=== PATIENT | female | born 1980 | race Caucasian/White ===

== ENCOUNTER 2016-12-02 05:32 | Emergency (ER) | payer BC ==
--- NOTE | ~2016-12-02 | ER ---
PATIENT'S NAME: LEEANN COX [facility] AGE: 36 Y [address] ROOM: [place] [address] LOCATION: [facility] ADMIT DATE: 12/02/2016 ER/Outpatient Report DISCHARGE DATE: 12/02/2016 FAMILY PHYSICIAN: Julius Mckeon MD ATTENDING PHYSICIAN: Krystal Cee CHIEF COMPLAINT: Severe abdominal pain. HISTORY OF PRESENT ILLNESS: The patient is a 36-year-old female, who has a rather confusing history. She was admitted approximately 8 days ago with severe right upper quadrant pain. She had a normal white count at that time and some minimal elevation of her liver function tests. She was admitted by her family physicians, and Surgery and Gastroenterology consults were obtained. She ended up having CT scans as well as an MRCP that showed some minimal edema along the edge of the gallbladder. No stones or other abnormalities. Certainly, no duct dilatation. HIDA scans were unremarkable. Due to the persistence of her pain, which was apparently quite severe, she ended up having a laparoscopic cholecystectomy done on Sunday. Some edema was noted around the gallbladder on the operative note. Otherwise, the procedure was quite uneventful. The patient apparently did feel somewhat better and went home the evening after the operation. She had been doing relatively well until 5 o'clock this morning when she was awakened by an abrupt onset of severe right-sided pain. The pain is constant in nature. It is an extremely intense and a burning-type pain. It seems to have radiated up into her right shoulder area. She has some nausea when the pain is most intense, but otherwise has had no nausea issues. She had some episodes of non-bloody diarrhea last night, but no diarrhea overnight or this morning. No fevers or chills. No dysuria or urinary frequency. The pain is somewhat similar to what she had before, but more intense. In the emergency room, the patient has required considerable amount of Dilaudid to control her pain. This only seems to take the edge off and only briefly. Her CT scan was reviewed by myself, and Dr. Tate who came in to see the patient. Her lab work shows a minimally elevated AST and ALT and a new elevated white count at 17,000. Nothing else really stands out. Her amylase and lipase were normal. PAST MEDICAL HISTORY: Really unchanged and generally just positive for the AMS. PAST SURGICAL HISTORY: Include a right Port-A-Cath as well as a and hernia repair. PHYSICAL EXAMINATION: VITAL SIGNS: She is afebrile. Her vital signs look pretty good other than some mild hypertension. GENERAL: The patient is a healthy, well-nourished young female. She does PATIENT'S NAME: LEEANN COX [facility] AGE: 36 Y [address] ROOM: [place] [address] LOCATION: [facility] ADMIT DATE: 12/02/2016 ER/Outpatient Report DISCHARGE DATE: 12/02/2016 FAMILY PHYSICIAN: Julius Mckeon MD ATTENDING PHYSICIAN: Krystal Cee appear to be in significant distress. Breathing is nonlabored. LUNGS: Clear to auscultation bilaterally. HEART: Regular. ABDOMEN: Soft. She does have bowel sounds. She is not visibly distended. Her trocar incisions are intact and healing well. She is diffusely tender, but more on the right side. It is a fairly severe pain, but I would not really describe any rebound or guarding symptoms. EXTREMITIES: No peripheral edema. No cyanosis. No obvious deformities. ASSESSMENT: A 36-year-old female with excruciating uncontrolled right-sided abdominal pain. The etiology of this is unclear. Certainly, we have to be concerned about postsurgical complication, but I am more worried that this is continuation of the previous abdominal pain, and we have not really figured out her etiology. PLAN: We were having considerable time getting her pain under control here, and I really do not have any other suggestions as to what to do to evaluate or treat her further. Dr. Tate, as I mentioned came into evaluate the patient, saw her also. I discussed this with Dr. Martinez who is automation test engineer for the family practice group. She has also previously been seen by Gastroenterology, though she did not get seen by them today. I am concerned enough about her pain and the lack of a diagnosis that we decided to transfer her to the [facility]. The hospitalist automation test engineer has accepted her in transfer. MD CYNDI CÁRDENAS/valente /[id number] d: 12/02/16 1433 t: 12/04/16 1241, OUTPATIENT REPORT
--- NOTE | ~2016-12-02 | ER ---
PATIENT'S NAME: LEEANN COX [facility] AGE: 36 Y [address] ROOM: [place], [place] [address] LOCATION: [facility] ADMIT DATE: 12/02/2016 ER/Outpatient Report DISCHARGE DATE: 12/02/2016 FAMILY PHYSICIAN: Julius Mckeon MD ATTENDING PHYSICIAN: Krystal Cee CHIEF COMPLAINT: Abdominal pain. HISTORY OF PRESENT ILLNESS: The patient states that she woke up at 5:00 a.m. with severe abdominal pain in the right upper quadrant that radiated to her right shoulder. She has a history of similar and in fact, on Sunday actually had a cholecystectomy by Dr. Tate. She felt like she had been improving and yesterday was doing quite well. Per report, the surgery was uneventful and her postop course was unremarkable. She has had some nausea with this, but the intensity is worse than she has had before per report. She also has MS, but denies any other issues. She did have some more liquid bowel movements recently as last night, which is slightly different for her, but no other acute issues. PAST MEDICAL HISTORY: Documented on the record and reviewed by me. SOCIAL HISTORY: Documented on the record and reviewed by me. MEDICATIONS: Documented on the record and reviewed by me. ALLERGIES: DOCUMENTED ON THE RECORD AND REVIEWED BY ME. REVIEW OF SYSTEMS: All systems reviewed, negative except as noted in the HPI. PHYSICAL EXAMINATION: VITAL SIGNS: Blood pressure 187/99, pulse 83, respiratory rate 20, temp 96.0, SpO2 is 93% on room air. Pain is severe. GENERAL: Age-appropriate female, in obvious severe pain, lying on the exam table writhing and uncomfortable. No respiratory distress. NEUROLOGIC: The patient is awake and alert. GCS 15. No focal deficits or asymmetry on exam. HEENT: Normocephalic and atraumatic. Eyes are PERRL. Oropharynx is clear. NECK: Supple. Trachea is midline. CHEST: Heart has regular rate and rhythm with no murmurs. LUNGS: Clear to auscultation bilateral with no rhonchi, wheezes, or rales. ABDOMEN: Diffusely tender with some guarding and rebound. No masses PATIENT'S NAME: LEEANN COX [facility] AGE: 36 Y [address] ROOM: [place], [place] [address] LOCATION: ED ADMIT DATE: 12/02/2016 ER/Outpatient Report DISCHARGE DATE: 12/02/2016 FAMILY PHYSICIAN: uJlius Mckeon MD ATTENDING PHYSICIAN: Krystal Cee. BACK: Nontender to palpation throughout. No CVA tenderness. EXTREMITIES: Warm and well perfused with no deformities. SKIN: Intact with no obvious rashes. LABS AND X-RAYS: CT scan of the abdomen reveals scant fluid in the gallbladder fossa with no obvious other abnormalities. Labs are notable for WBCs of 17.8, up from 7.3 on the ; hemoglobin is 11.4; and platelets of 393. INR 1.0. Lactate is elevated at 3.4. Free T4 is 1.0, TSH is 2.72. Amylase 33, lipase 103, CK-MB is 1.4. Troponin is undetectable. CRP is 0.64. HCG is undetectable. Sodium 142, potassium 3.4, chloride 107, CO2 of 19, BUN 7, creatinine 0.8. LFTs are notable for an AST of 61, an ALT of 86, GFR is greater than 60, total bilirubin of 0.4. Procalcitonin is undetectable. Repeat troponin is undetectable. Urinalysis is not consistent with infection. EKGs: Sinus rhythm, ventricular rate of 70 with otherwise normal intervals and axis. No signs of acute ischemia or dysrhythmia. There is inversion of the T-wave of lead V3, stable on repeat EKG. No other acute findings. Chest x-ray without abnormality per my read. IMPRESSION: Abdominal pain, not otherwise specified. EMERGENCY DEPARTMENT COURSE: The patient was evaluated as above. Imaging was obtained. With exam and leukocytosis, Dr. Tavera, on-call surgery, was contacted to evaluate the patient. He evaluated the patient at bedside with Dr. Tate. They have elected to transfer the patient as they were unsure of the current cause of pain. They think it is unlikely that she has perforation or even bile leak. Dr. Tavera arranged transfer of the patient to [facility] for further evaluation. Her pain was extremely difficult to control. She received several milligrams of Dilaudid, at least 7 mg total, in addition to Zofran and a dose of ketamine at 0.2 mg/kg for pain. This did not seem to provide any significant long-lasting benefits. Ultimately, after the evaluation by the surgical team, the patient PATIENT'S NAME: LEEANN COX [facility] AGE: 36 Y [address] ROOM: [place] [address] LOCATION: [facility] ADMIT DATE: 12/02/2016 ER/Outpatient Report DISCHARGE DATE: 12/02/2016 FAMILY PHYSICIAN: Julius Mckeon MD ATTENDING PHYSICIAN: Krystal Cee was transferred by ambulance to [facility]. Her pain was slightly better overall. She was requiring a little bit of oxygen at that time as her O2 sats would begin to dip whenever she would start to doze off. This was the best comfort level we were able to achieve in the ER. Vital signs on discharge were 142/71, pulse of 78, respiratory rate 16, temperature was 97.6, SpO2 of 98% on 2 L nasal cannula. The patient did receive an IV bolus for an elevated lactic acid of 3.4. She subsequently otherwise remained stable and was transferred without further issue. Please see Dr. Tavera's dictation for official details of his opinion and transfer. MD LARY LAWRENCE/valente /[id number] d: 12/02/16 1754 t: 12/08/16 0615, OUTPATIENT REPORT
[~2016-12-02 05:32] MED LIST: ADVIL200 MG PO; AMBIEN10 MG PO; COLACE100 MG PO; LUNESTA3 MG PO; PERCOCET 5-3251 EACH PO; TYLENOL325 MG PO; TYSABRI300 MG/15 IV; WELLBUTRIN SR150 MG PO
[2016-12-02 06:23] LABS: BASOPHIL # 0.1 K/uL (0.0-0.2); BASOPHIL % 0.4 %; EOSINOPHIL # 0.2 K/uL (0.0-0.5); EOSINOPHIL % 1.1 %; HEMATOCRIT 36.9 % (33.0-46.0); HEMOGLOBIN 11.4 g/dL (11.0-15.0); IMMATURE GRANULOCYTE # 0.2 K/uL (0.0-0.3); IMMATURE GRANULOCYTE % 0.8 %; LYMPHOCYTE # 3.4 K/uL (0.8-4.0); LYMPHOCYTE % 19.3 %; MCH 26.2 pg (27.0-34.0); MCHC 30.9 gm/dL (32.0-36.5); MCV 84.8 fl (83.0-98.0); MONOCYTE # 1.2 K/uL (0.0-1.0); MONOCYTE % 6.5 %; MPV 8.6 fl (9.4-12.4); NEUTROPHIL # (ANC) 12.8 K/uL (1.8-7.8); NEUTROPHIL % 71.9 %; NRBC % 0.2 /100WBC (0-0.00); PLATELET COUNT 393 K/uL (150-450); RBC 4.35 M/uL (3.50-5.50); RDW-CV 14.7 % (11.9-14.6); WBC 17.8 K/uL (4.0-11.0)
[2016-12-02 06:32] LABS: PTT 23 SECONDS (25-32)
[2016-12-02 06:46] LABS: ALBUMIN 3.5 gm/dL (3.5-5.0); ALK PHOS 80 IU/L (33-138); ALT 86 IU/L (12-78); ANION GAP 19.4 (10.0-19.0); AST 61 IU/L (10-40); BLOOD UREA NITROGEN 7 mg/dL (6-24); CALCIUM 8.6 mg/dL (8.5-10.5); CHLORIDE 107 mMol/L (96-110); CO2 19 mMol/L (22-32); CREATININE 0.8 mg/dL (0.5-1.1); ESTIMATED GFR (MDRD EQUATION) > 60; POTASSIUM 3.4 mMol/L (3.7-5.1); SODIUM 142 mMol/L (135-145); TOTAL BILIRUBIN 0.4 mg/dL (0.0-1.5); TOTAL PROTEIN 7.2 g/dL (6.0-8.4)
[2016-12-02 10:21] LABS: BILIRUBIN URINE NEGATIVE (NEGATIVE); BLOOD URINE NEGATIVE /UL (NEGATIVE); COLOR URINE YELLOW (YELLOW); GLUCOSE URINE NEGATIVE (NEGATIVE); KETONE URINE 5 mg/dL (NEGATIVE); LEUKOCYTES URINE NEGATIVE /UL (NEGATIVE); NITRITE URINE NEGATIVE (NEGATIVE); PROTEIN URINE NEGATIVE (NEGATIVE); TURBIDITY URINE CLEAR (CLEAR); UROBILINOGEN URINE NORMAL (NORMAL)
[2016-12-21] MEDS ORDERED: PRADAXA150 MG PO (22:57)
[2016-12-22] MEDS ORDERED: TIZANIDINE HCL2 MG PO (10:19)
[2016-12-22] MEDS ORDERED: KLONOPIN0.5 MG PO (10:20)
== END 2016-12-02 11:34 | disposition disaster alternative care site (69) ==
LOC: GMED 05:32
PROVIDERS: Emergency Medicine
PROC: 0T9B70Z Drainage of Bladder with Drainage Device, Via Natural or Artificial Opening (ICD-10-PCS; principal; 2016-12-02)
DX: R10.11 Right upper quadrant pain (principal); Z98.890 Other specified postprocedural states
CPT/HCPCS: J1170; J2405; J3010; J7030; Q9967

== ENCOUNTER 2017-02-13 15:41 | Emergency (ER) | payer BC, MEDICARE ==
--- NOTE | ~2017-02-13 | ER ---
PATIENT'S NAME: LEEANN COX [facility] AGE: 36 Y [address] ROOM: [place] [address] LOCATION: [facility] ADMIT DATE: 02/13/2017 ER/Outpatient Report DISCHARGE DATE: 02/13/2017 FAMILY PHYSICIAN: Julius Mckeon MD ATTENDING PHYSICIAN: Sebastian Aviles CHIEF COMPLAINT: Left upper abdominal pain. HISTORY OF PRESENT ILLNESS: The patient has had a very rough course over the last few months. She had chronic abdominal pain and ultimately received cholecystectomy, which postoperative course was complicated by abscess formation, pancreatitis, and pulmonary embolism. She was ultimately evaluated at [facility] for these issues and did receive a percutaneous drain for the abscess. She does have a biliary stent in place as far as we know. She had been doing well since her hospitalization for some chest pain in the middle of December until Sunday. She worked out on Sunday and has developed some more discomfort in her upper abdomen. This does not feel exactly like her prior issues, but it is concerning to her. She contacted her GI doctor in [place], Dr. August, who recommended she come in for evaluation and that is why she is here today. She has not taken anything and does not want any medications for this at this time. PAST MEDICAL HISTORY: Documented on the record and reviewed by me. SOCIAL HISTORY: Documented on the record and reviewed by me. MEDICATIONS: Documented on the record and reviewed by me. ALLERGIES: DOCUMENTED ON THE RECORD AND REVIEWED BY ME. REVIEW OF SYSTEMS: All systems were reviewed and negative except as noted in the HPI. PHYSICAL EXAMINATION: VITAL SIGNS: Blood pressure 146/83, pulse 91, respiratory rate is 14, temp 98.2, SpO2 is 100% on room air. Pain is rated at 4/10, max at 5 to 6 out of 10. GENERAL: An age appropriate female, in no obvious distress, in mild pain, sitting upright on the exam table. PATIENT'S NAME: LEEANN COX [facility] AGE: 36 Y [address] ROOM: [place] [address] LOCATION: [facility] ADMIT DATE: 02/13/2017 ER/Outpatient Report DISCHARGE DATE: 02/13/2017 FAMILY PHYSICIAN: Julius Mckeon MD ATTENDING PHYSICIAN: Sebastian Aviles NEUROLOGIC: The patient is awake and alert. She is very appropriate with a very even temperament at this time. She does smile intermittently. No obvious asymmetry on exam. HEENT: Normocephalic, atraumatic. Eyes are PERRL. Oropharynx is clear. NECK: Supple. Trachea is midline. CHEST: Heart is regular rate and rhythm with no murmurs. LUNGS: Clear to auscultation bilaterally with no rhonchi, wheezes, or rales. ABDOMEN: Soft with some slight tenderness in the upper quadrants. No rebound. No guarding. No mass is appreciated. BACK: Nontender. No CVA tenderness. EXTREMITIES: Warm and well perfused. No evidence of DVT. SKIN: Warm, dry, and intact. LABORATORY DATA AND X-RAYS: No imaging was obtained. Labs are reassuring overall CMS with no elevation of transaminases, alkaline phosphatase. No renal issues. Electrolytes are grossly within normal range except for low potassium of 3.4. Amylase and lipase are within normal limits. No elevation of troponin. HCG is below detectable threshold. CBC is notable for slight anemia of 10.7 for hemoglobin, WBC is 8.9, and platelets of 295. INR is 1.0. EKG: Sinus rhythm with a ventricular rate of 75 with otherwise normal intervals and axis. No significant changes compared to prior EKGs dated 12/21/2016 and 12/02/2016, other than rate. IMPRESSION: Abdominal pain. EMERGENCY DEPARTMENT COURSE: The patient was seen and evaluated as above. I spoke at length with Dr. August, GI physician at [facility], who can be reached at [phone]. I spoke at length with both the patient and Dr. August. Based on the patient's age, her overall reassuring evaluation so far today and the fact that she has had 5 total CTs at minimum this year, I am recommending no imaging today. I spoke at length with the patient, and it is her preference as well to not receive any imaging today with reassuring labs. She has expressed desire to return if there is any worsening of her condition for re-evaluation. She is scheduled to see Dr. August for evaluation of her biliary stent in 2 days at [facility]. She will return as needed for that issue. I do not think that her presentation is related to her pulmonary embolism as she has been taking her Pradaxa as prescribed. No further evidence of DVT. She also has no symptoms that were present with her prior study. On a reassuring note, the patient did have a CT in December at this facility, that did not show any persistent areas of abscess in the upper abdomen as well. With the thought that there is still a very minimal risk to PATIENT'S NAME: LEEANN COX [facility] AGE: 36 Y [address] ROOM: [place] [address] LOCATION: ED ADMIT DATE: 02/13/2017 ER/Outpatient Report DISCHARGE DATE: 02/13/2017 FAMILY PHYSICIAN: Julius Mckeon MD ATTENDING PHYSICIAN: Sebastian Aviles the patient for possible intraabdominal abscess and complication, we will choose to defer imaging at this time to try to minimize further exposure to radiation in the overall presentation of a reassuring situation. The patient remained otherwise stable, was appropriate, denied further pain medication when offered and was ultimately discharged in good condition. MD LARY LAWRENCE/modl /[id number] d: 02/13/17 2316 t: 02/19/17 0657, OUTPATIENT REPORT
[~2017-02-13 15:41] MED LIST changes: +KLONOPIN0.5 MG PO; +PRADAXA150 MG PO; +TIZANIDINE HCL2 MG PO
[2017-02-13 16:41] LABS: BASOPHIL % 0.3 %; EOSINOPHIL # 0.2 K/uL (0.0-0.5); EOSINOPHIL % 1.8 %; HEMATOCRIT 34.8 % (33.0-46.0); HEMOGLOBIN 10.7 g/dL (11.0-15.0); IMMATURE GRANULOCYTE % 0.3 %; LYMPHOCYTE # 2.9 K/uL (0.8-4.0); LYMPHOCYTE % 32.3 %; MCHC 30.7 gm/dL (32.0-36.5); MCV 81.3 fl (83.0-98.0); MONOCYTE # 0.7 K/uL (0.0-1.0); MONOCYTE % 7.6 %; MPV 8.9 fl (9.4-12.4); NEUTROPHIL # (ANC) 5.1 K/uL (1.8-7.8); NEUTROPHIL % 57.7 %; NRBC % 0.3 /100WBC (0-0.00); PLATELET COUNT 295 K/uL (150-450); RBC 4.28 M/uL (3.50-5.50); RDW-CV 14.2 % (11.9-14.6); WBC 8.9 K/uL (4.0-11.0)
[2017-02-13 16:50] LABS: INR - (THERAPEUTIC) 1.02 (0.92-1.07); PROTIME 10.7 SECONDS (9.8-11.4); PTT 24 SECONDS (25-32)
[2017-02-13 17:01] LABS: ALK PHOS 59 IU/L (33-138); ALT 31 IU/L (12-78); ANION GAP 14.4 (10.0-19.0); AST 26 IU/L (10-40); BLOOD UREA NITROGEN 12 mg/dL (6-24); CALCIUM 8.8 mg/dL (8.5-10.5); CHLORIDE 106 mMol/L (96-110); CO2 25 mMol/L (22-32); CREATININE 0.8 mg/dL (0.5-1.1); ESTIMATED GFR (MDRD EQUATION) > 60; POTASSIUM 3.4 mMol/L (3.7-5.1); SODIUM 142 mMol/L (135-145); TOTAL PROTEIN 7.3 g/dL (6.0-8.4)
[2017-02-13 17:02] LABS: TOTAL BILIRUBIN 0.6 mg/dL (0.0-1.5)
== END 2017-02-13 17:43 | disposition disaster alternative care site (69) ==
LOC: GMED 15:41
PROVIDERS: Emergency Medicine
DX: R10.12 Left upper quadrant pain (principal); Z90.49 Acquired absence of other specified parts of digestive tract; Z86.711 Personal history of pulmonary embolism; Z79.01 Long term (current) use of anticoagulants; Z79.899 Other long term (current) drug therapy

== ENCOUNTER 2017-04-22 19:41 | Emergency (ER) | payer BC, MEDICARE ==
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
== END 2017-04-22 20:39 | disposition disaster alternative care site (69) ==
LOC: GACC 19:41
DX: S97.81XA Crushing injury of right foot, initial encounter (principal); Z79.899 Other long term (current) drug therapy; V48.9XXA Unspecified car occupant injured in noncollision transport accident in traffic accident, initial encounter